=== PATIENT | female | born 1980 | race Native Hawaiian/Other Pacific Islander ===

== ENCOUNTER 2016-11-04 22:02 | Emergency (ER) | payer MEDICAID, OTHER ==
[~2016-11-04] VITALS: Ht 177.8 cm; Wt 130.2 kg
[2016-11-04] MEDS ORDERED: TETRACAINE HCL 0.5% OPTH(EYE) SOLN 4ML RIGHTEYE ONE (23:00)
[2016-11-04] MEDS ORDERED: FLUORESCEIN SOD 1 MG TEST STRIP ONE (23:01)
[2016-11-04] MEDS ORDERED: FLUORESCEIN SOD 1 MG TEST STRIP RIGHTEYE ONE (23:15)
[2016-11-04 23:34] VITALS: BP 144/82
[2016-11-04] MEDS ORDERED: GENTAMICIN OPTH sol 0.3% 5ml RIGHTEYE ONE (23:45)
== END 2016-11-04 23:58 | disposition home or self-care (01) ==
LOC: ER 22:03
DX: T15.91XA Foreign body on external eye, part unspecified, right eye, initial encounter (principal); X58.XXXA Exposure to other specified factors, initial encounter; Y93.89 Activity, other specified; Y99.8 Other external cause status; Y92.69 Other specified industrial and construction area as the place of occurrence of the external cause

== ENCOUNTER 2019-02-22 00:36 | Emergency (ER) | payer OTHER | END 2019-02-22 01:33 | disposition left against medical advice (07) | LOC: EDBD 00:36 → ER 00:41 | DX: R07.89 Other chest pain (principal); Z53.21 Procedure and treatment not carried out due to patient leaving prior to being seen by health care provider | CPT/HCPCS: 93005 ==